=== PATIENT | male | born 1965 | race African-American/Black ===

== ENCOUNTER 2016-11-29 03:42 | Emergency (ER) | payer OTHER, MEDICAID ==
[~2016-11-29] VITALS: Ht 172.7 cm; Wt 69.0 kg
[~2016-11-29 03:42] MED LIST: ASPI-864 PO; CARB200T PO; CARI350T PO; FURO-151 PO; HYDR-519 PO; LORA1TAB PO; MULT-660 PO; ZOLP10TA2 PO
[2016-11-29] MEDS ORDERED: VISCOUS LIDOCAINE 2% 15 ML UDC MM STA (06:43)
[2016-11-29] MEDS ORDERED: MAGNESIUM/ALUMINUM HYDROXIDE/SIMETHICONE 30ML UDC PO ONE (06:45)
[2016-11-29 07:05] VITALS: BP 128/74
== END 2016-11-29 07:41 | disposition home or self-care (01) ==
LOC: ER 03:42
DX: J02.8 Acute pharyngitis due to other specified organisms (principal); I10 Essential (primary) hypertension; F17.200 Nicotine dependence, unspecified, uncomplicated; F14.10 Cocaine abuse, uncomplicated; J45.909 Unspecified asthma, uncomplicated; R56.9 Unspecified convulsions; Z79.01 Long term (current) use of anticoagulants; Z86.73 Personal history of transient ischemic attack (TIA), and cerebral infarction without residual deficits; Z79.82 Long term (current) use of aspirin
CPT/HCPCS: 99283; 99406

== ENCOUNTER 2016-11-29 15:45 | Emergency (ER) | payer OTHER, MEDICAID ==
[~2016-11-29] VITALS: Ht 175.3 cm; Wt 70.0 kg
[2016-11-29 15:53] VITALS: BP 146/75
== END 2016-11-29 20:32 | disposition left against medical advice (07) ==
LOC: ER 16:05
DX: Z53.21 Procedure and treatment not carried out due to patient leaving prior to being seen by health care provider (principal)

== ENCOUNTER 2022-08-16 18:07 | Emergency (ER) | payer OTHER, MEDICAID ==
[~2022-08-16] VITALS: Ht 182.9 cm; Wt 91.0 kg
[~2022-08-16 18:07] MED LIST changes: -CARI350T PO; +CARI350T28 PO
[2022-08-16] MEDS ORDERED: SODIUM CHLORIDE 0.9% 1,000 ML IV ONE (19:00)
[2022-08-16 19:14] LABS: BASOPHILS % 0.5 % (0.0-2.0); EOSINOPHILS % 2.8 % (0.0-5.0); HEMATOCRIT. 39.9 % (42.0-52.0); HEMOGLOBIN. 13.9 g/dL (14.0-18.0); LYMPHOCYTES % 35.4 % (20.0-50.0); MEAN CORPUSCULAR HEMOGLOBIN 30.6 pg (28.0-32.0); MEAN CORPUSCULAR VOLUME 87.7 fL (80.0-94.0); MEAN PLATELET VOLUME 6.9 fl (7.4-10.4); MONOCYTES % 9.8 % (2.0-8.0); NEUTROPHILS % 51.5 % (40.0-76.0); PLATELET 422 x1000/uL (130-400); RED BLOOD CELL COUNT 4.55 mill/uL (4.7-6.1); RED CELL DISTRIBUTION WIDTH 14.1 % (11.6-14.6)
[2022-08-16 19:22] LABS: CHLORIDE 111 mEq/L (98-107)
[2022-08-16 19:28] LABS: ETHANOL BLOOD < 10 mg/dL
[2022-08-16] MEDS ORDERED: ASPIRIN/ACETAMINOPHEN/CAFFEINE 250/250/65MG TABLET PO ONE (20:00)
[2022-08-16 20:11] LABS: CLARITY URINE CLEAR (CLEAR); COLOR URINE YELLOW (YELLOW); KETONES URINE NEGATIVE (NEGATIVE); LEUKOCYTE ESTERASE URINE NEGATIVE (NEGATIVE); NITRITE URINE NEGATIVE (NEGATIVE); OCCULT BLOOD URINE NEGATIVE (NEGATIVE); PROTEIN URINE NEGATIVE (NEGATIVE); SPECIFIC GRAVITY URINE 1.026 (1.005-1.030)
[2022-08-16 20:21] LABS: *AMPHETAMINES SCREEN URINE NEGATIVE (NEGATIVE); *BARBITURATES SCREEN URINE NEGATIVE (NEGATIVE); *BENZODIAZEPINES SCREEN URINE NEGATIVE (NEGATIVE); *COCAINE SCREEN URINE NEGATIVE (NEGATIVE); CANNABINOID URINE SCREEN NEGATIVE (NEGATIVE); METHADONE URINE SCREEN NEGATIVE (NEGATIVE); OPIATES URINE SCREEN NEGATIVE (NEGATIVE); PHENCYCLIDINE URINE SCREEN NEGATIVE (NEGATIVE)
[2022-08-16 20:39] VITALS: BP 134/69
== END 2022-08-16 20:49 | disposition home or self-care (01) ==
LOC: ER 18:07
DX: G40.909 Epilepsy, unspecified, not intractable, without status epilepticus (principal); D75.839 Thrombocytosis, unspecified; J45.909 Unspecified asthma, uncomplicated; I10 Essential (primary) hypertension; Z79.82 Long term (current) use of aspirin; Z86.73 Personal history of transient ischemic attack (TIA), and cerebral infarction without residual deficits
CPT/HCPCS: 36415; 70450; 80053; 80165; 80185; 80305; 80320; 81003; 82140; 83690; 85025; 96360; 96361; 99284; J7030; G0480

== ENCOUNTER 2025-03-01 13:44 | Emergency (ER) | payer OTHER, MEDICAID ==
[~2025-03-01] VITALS: Ht 170.2 cm; Wt 89.0 kg
[~2025-03-01 13:44] MED LIST changes: +CARI-518 PO; -CARI350T28 PO
[2025-03-01 14:03] VITALS: O2SAT 99
[2025-03-01 15:11] LABS: BASOPHILS % 0.9 % (0.0-2.0); EOSINOPHILS % 2.5 % (0.0-5.0); HEMATOCRIT. 41.1 % (42.0-52.0); HEMOGLOBIN. 14.0 g/dL (14.0-18.0); LYMPHOCYTES % 36.2 % (20.0-50.0); MEAN PLATELET VOLUME 6.9 fl (7.4-10.4); MONOCYTES % 9.8 % (2.0-8.0); NEUTROPHILS % 50.6 % (40.0-76.0); PLATELET 402 x1000/uL (130-400); RED BLOOD CELL COUNT 4.76 mill/uL (4.7-6.1); RED CELL DISTRIBUTION WIDTH 14.0 % (11.6-14.6)
[2025-03-01 15:24] LABS: CREATININE 1.1 mg/dL (0.6-1.3); UREA NITROGEN BLOOD 10 mg/dL (9-23)
[2025-03-01 19:01] LABS: CARBAMAZEPINE 2.3 ug/mL (4-12); PHENYTOIN 2.7 ug/mL (10-20)
[2025-03-01 21:20] VITALS: BP 131/85; PULSE 62; RESP 16; TEMP 36.7; O2SAT 99
[2025-03-01 21:27] LABS: CLARITY URINE CLEAR (CLEAR); COLOR URINE YELLOW (YELLOW); GLUCOSE URINE NEGATIVE (NEGATIVE); KETONES URINE NEGATIVE (NEGATIVE); LEUKOCYTE ESTERASE URINE NEGATIVE (NEGATIVE); NITRITE URINE NEGATIVE (NEGATIVE); OCCULT BLOOD URINE NEGATIVE (NEGATIVE); PH URINE 6.5 (4.5-8.0); PROTEIN URINE NEGATIVE (NEGATIVE); SPECIFIC GRAVITY URINE 1.024 (1.005-1.030); UROBILINOGEN URINE 1.0 E.U./dL (0.2-1.0)
[2025-03-01 21:35] LABS: *AMPHETAMINES SCREEN URINE NEGATIVE (NEGATIVE); *BARBITURATES SCREEN URINE NEGATIVE (NEGATIVE); *BENZODIAZEPINES SCREEN URINE NEGATIVE (NEGATIVE); *COCAINE SCREEN URINE NEGATIVE (NEGATIVE); CANNABINOID URINE SCREEN NEGATIVE (NEGATIVE); ECSTASY MDMA SCREEN URINE NEGATIVE (NEGATIVE); METHADONE URINE SCREEN NEGATIVE (NEGATIVE); OPIATES URINE SCREEN NEGATIVE (NEGATIVE); PHENCYCLIDINE URINE SCREEN NEGATIVE (NEGATIVE)
[2025-03-01] MEDS: PHENYTOIN SODIUM EXTENDED 100MG CAPSULE PO ONE (21:40)
[2025-03-01] MEDS: CARBAMAZEPINE 200MG TABLET PO ONE (21:40)
== END 2025-03-01 21:47 | disposition home or self-care (01) ==
LOC: ER 14:01
DX: G40.909 Epilepsy, unspecified, not intractable, without status epilepticus (principal); I10 Essential (primary) hypertension; J45.909 Unspecified asthma, uncomplicated; Z79.01 Long term (current) use of anticoagulants; Z79.82 Long term (current) use of aspirin; Z79.899 Other long term (current) drug therapy; Z86.73 Personal history of transient ischemic attack (TIA), and cerebral infarction without residual deficits
CPT/HCPCS: 36415; 80048; 80156; 80185; 80305; 80320; 81003; 85025; 93005; 99284; G0480